=== PATIENT | female | born 1960 | race Caucasian/White ===

== ENCOUNTER 2016-05-22 12:02 | Day surgery (SDC) | payer BC ==
--- NOTE | ~2016-05-22 | OP ---
[facility] Of [place] [address]. [address] NAME: TYREE FLYNN : 62 STATUS : [facility] PAT#: [id number] AGE: 55 ADM/REG DATE : 05/22/16 MR#: [id number] REPORT SERV DATE: 05/30/16 DICTATED BY: DAWOOD BATISTA DATE: 05/29/16 REPORT STATUS : Draft TRANSCRIBED BY: MODL DATE: 05/29/16 DATE OF PROCEDURE: PREOPERATIVE DIAGNOSIS: 1. 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 2. Status post a stereotactic-guided biopsy. OPERATION: 1. Right breast partial mastectomy. 2. Limited focal intraoperative ultrasound. POSTOPERATIVE DIAGNOSES: 1. 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 2. Status post a stereotactic-guided biopsy. SURGEON: Dawood Batista M.D. RESIDENT SURGEONS: Mj Wade MD ANESTHESIA: General. COMPLICATIONS: None. ESTIMATED BLOOD LOSS: Minimal. COUNTS: Correct. DISPOSITION: PACU. SPECIMENS: To pathology. Discussed with Dr. Voss, pathologist, intraoperatively during consultation. These include the lesion localizing guidewire, previous biopsy clip, and the additional microcalcifications. Informed consent obtained. Preoperative localization included wires from CC approach medial and lateral. The wires had intended to localize, one in the previous biopsy clip and the biopsy cavity. Two, the microcalcifications left after the initial biopsy. Informed consent obtained. INDICATION: An extremely pleasant 55-year-old lady found to have an abnormal screening mammogram. These shows microcalcifications in the right breast. Biopsy was performed. There were 2 clusters close to the small. The cluster showed 1 anterior tactic guided [facility] [place] [address] [place]. [address] NAME: TYREE FLYNN : 62 STATUS : [facility] PAT#: [id number] AGE: 55 ADM/REG DATE : 05/22/16 MR#: [id number] REPORT SERV DATE: 05/30/16 DICTATED BY: DAWOOD BATISTA DATE: 05/29/16 REPORT STATUS : Draft TRANSCRIBED BY: MODL DATE: 05/29/16 biopsy, pleomorphic lobular carcinoma in situ. She was presented at tumor conference, breast multi-disciplinary pretreatment management compressed. The patient has been scheduled to see Medical Oncology and Radiation Oncology, and she was recommended to see them prior to surgery due to logistics and scheduling request by the patient. This has not yet been accomplished, although it is formally scheduled. I discussed with the patient the options and management. An MRI was obtained. Tumor board breast conference recommended to proceed with a surgical therapy as the initial step. This was in agreement with the NCCN guidelines. The patient was informed understood and agree. The MRI and mammograms and physical exam did not show any other abnormalities. Preoperatively, the area was localized with 3 different guidewires. SUMMARY: She was brought to the operating room, placed supine, patient identified, procedure confirmed. Time-out protocol enforced, prophylactic IV antibiotics given. The right breast was prepped and draped in anesthetic fashion. An intraoperative ultrasound was used to localize the area of the localizing guidewire to center the incision in the upper outer quadrant close to the 10 o'clock position. Images could not be obtained due to malfunction of the ultrasound printer. An incision was made carried down through the underlying subcutaneous tissue. Flaps were created superiorly inferiorly medially and laterally to encompass the previous biopsy clip area with the localizing guidewire of the previous biopsy hematoma. There was significant ecchymosis of the tissues surrounding the biopsy hematoma. We made every effort to encompass the area with 1 margin in all directions as the area of additional microcalcification is slightly separate from the biopsy clip. The breast parenchyma was then transected using electrocautery. Hemostasis secured by means of electrocoagulation. Few ligatures of 3-0 Vicryl were also necessary. The area of the abnormality and wide margins in all directions including the hematoma were then encompassed within the specimen. The breast parenchyma was transected all the way down to the underlying aponeurosis. The patient had been informed and the extent of the surgical procedure and the potential limitations in intraoperative assessment of this condition as there are no abnormalities by palpation of ultrasound. The only abnormalities are seen by microcalcifications on mammogram. The specimen was removed, oriented, labile, sent to the breast center for specimen radiograph. The localizing guidewire were seen in the biopsy clip and the microcalcifications are old in the specimen. It appears that the area of the hematoma closely approximated the skin flaps. At the time of the resection, we ensured that the flaps were left relatively thin without any obvious breast parenchyma left in the area to secure margins. Hemostasis was achieved by means of electrocoagulation. This was secured. The specimen discussed with Dr. Voss, pathologist, defer evaluation of the margins for permanent section. The field was irrigated with normal saline solution. 0.25% Marcaine for postoperative pain Record Of Operation [address] [place]. [address] NAME: TYREE FLYNN : 62 STATUS : [facility] PAT#: [id number] AGE: 55 ADM/REG DATE : 05/22/16 MR#: [id number] REPORT SERV DATE: 05/30/16 DICTATED BY: DAWOOD BATISTA DATE: 05/29/16 REPORT STATUS : Draft TRANSCRIBED BY: NILS DATE: 05/29/16 control. The dermis approximated with interrupted sutures of 3-0 Vicryl. The skin with a running suture of 4-0 Monocryl. Sterile dressings were applied. Tolerated procedure well. No complications. Await path report. Family informed in detail and exit time out protocol was enforced. MARISSA/NILS Dawood Batista M.D. / [id number] CC: Christiano Edwards M.D.
[~2016-05-22 12:02] MED LIST: FISH-EPA1000 MG PO; LEVOTHYROXIN50 MCG PO; MULTIVITAMI1 PO; PROBIOTIC PO
[2016-05-22 12:44] LABS: HEMATOCRIT 40.7 % (36.0-48.0); HEMOGLOBIN 14.7 g/dL (12.0-16.0)
[2016-05-22 12:55] LABS: BUN (BLOOD UREA NITROGEN) 13 MG/DL (6-23); CHLORIDE, SERUM 106 MMOL/L (96-112); CO2 (CARBON DIOXIDE) 30 MMOL/L (24-34); CREATININE 0.77 MG/DL (0.55-1.02); GFR AFRICAN AMERICAN 101 ML/MIN (>=60); GFR NON AFRICAN AMERICAN 88 ML/MIN (>=60); GLUCOSE, SERUM 97 MG/DL (60-99); POTASSIUM, SERUM 3.7 MMOL/L (3.5-5.3); SODIUM, SERUM 142 MMOL/L (135-148)
== END 2016-05-22 20:24 | disposition home or self-care (01) ==
LOC: SDC 12:02
PROVIDERS: Surgery
PROC: 0HBT0ZZ Excision of Right Breast, Open Approach (ICD-10-PCS; principal; 2016-05-22 13:15)
DX: D05.01 Lobular carcinoma in situ of right breast (principal); E03.9 Hypothyroidism, unspecified; N80.9 Endometriosis, unspecified; Z90.710 Acquired absence of both cervix and uterus; Z90.89 Acquired absence of other organs; Z88.5 Allergy status to narcotic agent; Z91.018 Allergy to other foods; Z87.891 Personal history of nicotine dependence; E78.00 Pure hypercholesterolemia, unspecified; Z79.899 Other long term (current) drug therapy
CPT/HCPCS: 80048; 85014; 85018; 88307; 93005; A9270-GY; J0690; J2250; J2270; J2405; J3010; Q9968